=== PATIENT | male | born 1970 | race Caucasian/White ===

== ENCOUNTER 2016-11-05 01:22 | Emergency (ER) | payer OTHER ==
--- NOTE | 2016-11-05 01:53 | PDOC ---
History of Present Illness - General History Source: Patient Exam Limitations: No Limitations - History of Present Illness Initial Comments: 11/05/16 02:11 The patient is a 46 year old male a significant past medical history of DM II who presents to the ED with vomiting and diarrhea since Saturday. Patient reports associated chills and abdominal cramping. Patient states that he had knee surgery and after he ran out of his pain medication he started to use heroin, he was told that it has the same effect as his medication. Patient notes that he has not used heroin since Saturday. Patient is requesting detox. <Ronda Washington - Last Filed: 11/05/16 02:11> <Marlyn Calzada - Last Filed: 11/10/16 21:52> - General Chief Complaint: Nausea/Vomiting Stated Complaint: VOMITING Time Seen by Provider: 11/05/16 01:30 Past History <Ronda Washington - Last Filed: 11/05/16 02:11> - Psycho/Social/Smoking Cessation Hx Suicidal Ideation: No Smoking History: Never smoked Have you smoked in the past 12 months: No Information on smoking cessation initiated: No Hx Alcohol Use: No Drug/Substance Use Hx: No <Marlyn Calzada - Last Filed: 11/10/16 21:52> - Past Medical History Allergies/Adverse Reactions: Allergies Allergy/AdvReac Type Severity Reaction Status Date / Time No Known Allergies Allergy Verified 11/05/16 01:40 Review of Systems - Review of Systems Able to Perform ROS?: Yes Comments:: 11/05/16 02:11 GENERAL/CONSTITUTIONAL: No fever or chills. No weakness. HEAD, EYES, EARS, NOSE AND THROAT: No change in vision. No ear pain or discharge. No sore throat. CARDIOVASCULAR: No chest pain or shortness of breath. RESPIRATORY: No cough, wheezing, or hemoptysis. GASTROINTESTINAL: + nausea, +vomiting, +diarrhea. No constipation. GENITOURINARY: No dysuria, frequency, or change in urination. MUSCULOSKELETAL: No joint or muscle swelling or pain. No neck or back pain. SKIN: No rash NEUROLOGIC: No headache, vertigo, loss of consciousness, or change in strength/ sensation. ENDOCRINE: No increased thirst. No abnormal weight change. HEMATOLOGIC/LYMPHATIC: No anemia, easy bleeding, or history of blood clots. ALLERGIC/IMMUNOLOGIC: No hives or skin allergy. <Ronda Washington - Last Filed: 11/05/16 02:11> *Physical Exam - Vital Signs Last Vital Signs Temp Pulse Resp BP Pulse Ox 99.0 F 64 22 127/64 99 11/05/16 01:40 11/05/16 01:40 11/05/16 01:40 11/05/16 01:40 11/05/16 01:40 - Physical Exam Comments: 11/05/16 02:12 GENERAL: Awake, alert, and fully oriented, in no acute distress HEAD: No signs of trauma EYES: PERRLA, EOMI, sclera anicteric, conjunctiva clear ENT: Auricles normal inspection, hearing grossly normal, nares patent, oropharynx clear without exudates. Moist mucosa NECK: Normal ROM, supple, no lymphadenopathy, JVD, or masses LUNGS: Breath sounds equal, clear to auscultation bilaterally. No wheezes, and no crackles HEART: Regular rate and rhythm, normal S1 and S2, no murmurs, rubs or gallops ABDOMEN: Soft, nontender, normoactive bowel sounds. No guarding, no rebound. No masses EXTREMITIES: Normal range of motion, no edema. No clubbing or cyanosis. No cords, erythema, or tenderness NEUROLOGICAL: Cranial nerves II through XII grossly intact. Normal speech. SKIN: Warm, Dry, normal turgor, no rashes or lesions noted. <Ronda Washington - Last Filed: 11/05/16 02:11> - Vital Signs Last Vital Signs Temp Pulse Resp BP Pulse Ox 99.0 F 64 22 127/64 99 11/05/16 01:40 11/05/16 01:40 11/05/16 01:40 11/05/16 01:40 11/05/16 01:40 <Marlyn Calzada - Last Filed: 11/10/16 21:52> ED Treatment Course - LABORATORY CBC & Chemistry Diagram: 11/05/16 02:00 11/05/16 02:00 <Marlyn Calzada - Last Filed: 11/10/16 21:52> Medical Decision Making - Medical Decision Making 11/10/16 21:52 Pt comes for opioid detox. He was medically cleared and sent to [facility] where he was accepted to their detox program. <Marlyn Calzada - Last Filed: 11/10/16 21:52> *DC/Admit/Observation/Transfer - Attestations Scribe Attestion: 11/05/16 02:12 Documentation prepared by YONNY Santa, acting as medical supply technician for Marlyn Calzada MD. <Ronda Washington - Last Filed: 11/05/16 02:11> - Discharge Dispostion Admit: No <Marlyn Calzada - Last Filed: 11/10/16 21:52> Diagnosis at time of Disposition: Substance abuse - Discharge Dispostion Disposition: I.P. ALCOHOL/SUBS ABUSE REHAB - Referrals Referrals: Aidan Freeman [Primary Care Provider] - - Patient Instructions Printed Discharge Instructions: Getting Treatment for Drug Addiction
[2016-11-05] MEDS ORDERED: SODIUM CHLORIDE 0.9% 500 ML INFUS.BAG IV ONE (02:11)
[2016-11-05] MEDS ORDERED: ONDANSETRON 4 MG/2 ML VIAL IVPB ONE ×2 (02:12→02:15)
[2016-11-05] MEDS ORDERED: ONDANSETRON 4 MG/2 ML VIAL ONE (02:12)
[2016-11-05 02:14] LABS: BASOPHIL 0.5 % (0-2.0); MCH 28.9 pg (25.7-33.7); MCHC 34.1 g/dl (32.0-35.9); MEAN CELL VOLUME 84.8 fl (80-96); MEAN PLT VOLUME 8.9 fl (7.5-11.1); NEUTROPHILS 78.5 % (42.8-82.8); PLATELET COUNT 242 K/MM3 (134-434); RDW 12.7 % (11.9-15.9)
[2016-11-05 02:41] LABS: ALBUMIN 4.3 g/dl (3.4-5.0); ALK PHOS 116 U/L (45-117); ANION GAP 12 (8-16); BILIRUBIN,TOTAL 0.7 mg/dL (0.2-1.0); CO2 27 mmol/L (21-32); COCKROFT - GAULT 0; GLUCOSE,RANDOM 160 mg/dL (74-106); SGOT/AST 12 U/L (15-37); SGPT/ALT 30 U/L (12-78); TOT PROT 8.8 g/dl (6.4-8.2)
[2016-11-05 03:22] LABS: URINE MARIJUANA THC NEGATIVE ng/ml (CUTOFF=50)
[2016-11-05 05:39] VITALS: BP 127/64; PULSE 64; TEMP 99; BMI 31.0
== END 2016-11-05 03:31 | disposition other institution (70) ==
LOC: JER 01:22
PROC: 3E033GC Introduction of Other Therapeutic Substance into Peripheral Vein, Percutaneous Approach (ICD-10-PCS; principal; 2016-11-05)
DX: F11.10 Opioid abuse, uncomplicated (principal)
CPT/HCPCS: 36415; 80053; 80307; 85025; 96374; 96376; 99283-25